=== PATIENT | male | born 1980 | race Caucasian/White ===

== ENCOUNTER 2017-06-09 13:36 | Emergency (ER) | payer MEDICAID ==
[~2017-06-09] VITALS: Wt 69.0 kg
[~2017-06-09 13:36] MED LIST: HYDR-3498 PO; NAPR-260 PO
[2017-06-09 14:46] LABS: BASOPHILS % 0.4 % (0.0-2.0); EOSINOPHILS % 0.8 % (0.0-7.0); HEMATOCRIT 41.8 % (42.0-52.0); HEMOGLOBIN 14.7 g/dl (14.0-18.0); LYMPHOCYTES # 1.9 10^3/ul (0.8-2.9); LYMPHOCYTES % 38.1 % (15.0-51.0); MEAN CORPUSCULAR HEMOGLOBIN 30.3 pg (29.0-33.0); MEAN CORPUSCULAR HGB CONC 35.2 g/dl (32.0-37.0); MEAN CORPUSCULAR VOLUME 86.2 fl (82.0-101.0); MEAN PLATELET VOLUME 9.8 fl (7.4-10.4); MONOCYTE # 0.4 10^3/ul (0.3-0.9); MONOCYTES % 8.3 % (0.0-11.0); NEUTROPHIL # 2.6 10^3/ul (1.6-7.5); NEUTROPHILS % 52.2 % (39.0-77.0); PLATELET COUNT 235 10^3/UL (140-415); RED BLOOD COUNT 4.85 10^6/ul (4.70-6.10); RED CELL DISTRIBUTION WIDTH 12.2 % (11.5-14.5); WHITE BLOOD COUNT 4.9 10^3/ul (4.8-10.8)
[2017-06-09 15:03] LABS: ALBUMIN 4.4 g/dl (3.3-4.9); ALBUMIN/GLOBULIN RATIO 1.37; BILIRUBIN,INDIRECT 0.3 mg/dl (0-1.1); BILIRUBIN,TOTAL 0.3 mg/dl (0.2-1.3); CALCIUM 9.6 mg/dl (8.4-10.2); CREATININE 0.88 mg/dl (0.61-1.24); POTASSIUM 4.1 mmol/L (3.5-5.1); TOTAL PROTEIN 7.6 g/dl (6.1-8.1)
--- NOTE | 2017-06-09 15:08 | RADRPT ---
PROCEDURE: Scrotal ultrasound CLINICAL INDICATION: Scrotal pain TECHNIQUE: Scrotal ultrasound was performed in multiple obliquities. [place] scale and color imaging was performed. Images were reviewed on high resolution PACS monitors. COMPARISON: None available FINDINGS: The testes are normal in size and echogenicity. There is normal flow to the bilateral testes. No t esticular mass or cyst is identified. No hydroceles are seen. There is a 3 mm right epididymal cyst. The epididymides are otherwise normal. There is no evidence for a varicocele. IMPRESSION: 1. 3 mm right epididymal cyst. 2. Otherwise unremarkable scrotal ultrasound. RPTAT: HJBF .Gaurav Flores MD, Date Time Electronically viewed and signed by .Gaurav Flores MD, MD on 06/09/2017 15:07 .B/
[2017-06-09 15:24] LABS: ADD UMIC NO; UR ASCORBIC ACID NEGATIVE (NEGATIVE); UR BILIRUBIN (Dip) NEGATIVE (NEGATIVE); UR BLOOD (Dip) NEGATIVE (NEGATIVE); UR CLARITY SLIGHTLY CLOUDY (CLEAR); UR COLOR YELLOW (YELLOW); UR GLUCOSE (Dip) NEGATIVE (NEGATIVE); UR KETONES (Dip) NEGATIVE (NEGATIVE); UR LEUKOCYTE ESTERASE (Dip) NEGATIVE Leu/ul (NEGATIVE); UR NITRITE (Dip) NEGATIVE (NEGATIVE); UR RBC 0 /HPF (0-5); UR SPECIFIC GRAVITY (Dip) 1.016 (1.003-1.030); UR TOTAL PROTEIN (Dip) NEGATIVE (NEGATIVE); UR UROBILINOGEN (Dip) NEGATIVE (NEGATIVE)
[2017-06-09] MEDS ORDERED: CLOT30CR24 TOP (16:06)
[2017-06-09] MEDS ORDERED: IBUP-1542 PO (16:06)
--- NOTE | 2017-06-09 16:13 | ERD ---
ER Documentation Chief Complaint Date/Time DATE: 06/09/17 TIME: 16:10 Chief Complaint GENITIAL PROBLEM X 4 MONTH HPI This 36-year-old male presents with multiple complaints regarding his genitals. States he has a burning rash on his penis for the last 4 months. He also has pain in his right testicle as well as pain in suprapubic area. His initial complaints of fatigue and is requesting blood work. Denies any penile discharge , dysuria, fevers, vomiting, shortness of breath. ROS All systems reviewed and are negative except as per history of present illness. Medications Home Meds Active Scripts Ibuprofen* (Motrin*) 600 Mg Tab, 600 MG PO Q6, #20 TAB Prov:JENELLE WATERMAN MD 06/09/17 Clotrimazole* (Clotrimazole* AF) 1% - 30 Gm Cream.gm., 1 APPLIC TOP BID for 7 Days, TUB Prov:JENELLE WATERMAN MD 06/09/17 Hydrocodone Bit-Acetaminophen* ([place]*) 5-325 Mg Tab, 1 TAB PO Q6 Y for PAIN, # 14 TAB Prov:PAYAL CERNA DO 10/17/15 Naproxen* (Naprosyn*) 500 Mg Tablet, 500 MG PO BID Y for PAIN AND/OR INFLAMMATION, #30 TAB Prov:PAYAL CERNA DO 10/17/15 Allergies Allergies: Coded Allergies: No Known Allergy (Unverified , 06/09/17) PMhx/Soc Medical and Surgical Hx: pt denies Medical Hx, pt denies Surgical Hx History of Surgery: Yes (appendix) Anesthesia Reaction: No Hx Neurological Disorder: No Hx Respiratory Disorders: No Hx Cardiac Disorders: No Hx Psychiatric Problems: No Hx Miscellaneous Medical Probl: No Hx Alcohol Use: No Hx Substance Use: No Hx Tobacco Use: No Smoking Status: Never smoker Physical Exam Vitals Vital Signs Date Time Temp Pulse Resp B/P Pulse Ox O2 Delivery O2 Flow Rate FiO2 06/09/17 13:37 98.0 69 18 110/71 99 Physical Exam Const: []Alert, [id number] per Head: Atraumatic Eyes: Normal Conjunctiva ENT: Normal External Ears, Nose and Mouth. Neck: Full range of motion..~ No meningismus. Resp: Clear to auscultation bilaterally Cardio: Regular rate and rhythm, no murmurs Abd: Soft, non tender, non distended. Normal bowel sounds General exam-testicles show some very mild tenderness at the superior to the testicle in the epidural space area. There is no significant swelling. Is no penile discharge. There is no appreciable abnormalities on the penile shaft where the patient complains of burning and rash. Possibly minimal tenderness in the right inguinal canal. There is no hernias and no tenderness at McBurney' s point no Frost sign. No penile discharge. Skin: No petechiae or rashes Back: No midline or flank tenderness Ext: No cyanosis, or edema Neur: Awake and alert Psych: Normal Mood and Affect Result Diagram: 06/09/17 1430 06/09/17 1430 Results 24 hrs Laboratory Tests Test 06/09/17 14:30 06/09/17 14:46 White Blood Count 4.910^3/ul Red Blood Count 4.8510^6/ul Hemoglobin 14.7g/dl Hematocrit 41.8% Mean Corpuscular Volume 86.2fl Mean Corpuscular Hemoglobin 30.3pg Mean Corpuscular Hemoglobin Concent 35.2g/dl Red Cell Distribution Width 12.2% Platelet Count 16936^3/UL Mean Platelet Volume 9.8fl Neutrophils % 52.2% Lymphocytes % 38.1% Monocytes % 8.3% Eosinophils % 0.8% Basophils % 0.4% Nucleated Red Blood Cells % 0.0/100WBC Neutrophils # 2.610^3/ul Lymphocytes # 1.910^3/ul Monocytes # 0.410^3/ul Eosinophils # 0.010^3/ul Basophils # 0.010^3/ul Nucleated Red Blood Cells # 0.010^3/ul Sodium Level 141mmol/L Potassium Level 4.1mmol/L Chloride Level 103mmol/L Carbon Dioxide Level 30mmol/L Anion Gap 12 Blood Urea Nitrogen 16mg/dl Creatinine 0.88mg/dl Glucose Level 92mg/dl Calcium Level 9.6mg/dl Total Bilirubin 0.3mg/dl Direct Bilirubin 0.00mg/dl Indirect Bilirubin 0.3mg/dl Aspartate Amino Transf (AST/SGOT) 30IU/L Alanine Aminotransferase (ALT/SGPT) 47IU/L Alkaline Phosphatase 62IU/L Total Protein 7.6g/dl Albumin 4.4g/dl Globulin 3.20g/dl Albumin/Globulin Ratio 1.37 Urine Color YELLOW Urine Clarity SLIGHTLY CLOUDY Urine pH 7.0 Urine Specific [place] 1.016 Urine Ketones NEGATIVEmg/dL Urine Nitrite NEGATIVEmg/dL Urine Bilirubin NEGATIVEmg/dL Urine Urobilinogen NEGATIVEmg/dL Urine Leukocyte Esterase NEGATIVELeu/ul Urine Microscopic RBC 0/HPF Urine Microscopic WBC 1/HPF Urine Hemoglobin NEGATIVEmg/dL Urine Glucose NEGATIVEmg/dL Urine Total Protein NEGATIVEmg/dl Procedures/MDM Scrotal ultrasound shows right epididymal cyst without additional acute findings. Urine shows no acute abnormalities CBC and CMP normal. Urine sent for gonorrhea chlamydia. Patient presents with multiple complaints regarding his genitals. He does have a small epididymal cyst and nonspecific itching of his penile shaft. He was treated with Lotrimin empirically and ibuprofen for pain and primary care follow-up and return precautions. Gonorrhea chlamydia is pending and he will be called for abnormal results. There is no evidence of testicular torsion, signs or symptoms to suggest appendicitis, sepsis, additional emergent causes of presenting complaints. Departure Diagnosis: Primary Impression: Disorder of male genital organs Condition: Stable Patient Instructions: Dermatitis, Non-Specific, Std, Suspected (Culture Only) Additional Instructions: Examines normal hoy. solo un cyste ( benigna) Cheque otro vez con rodriguez doctor primario en el proximo siegel or regresa para mas o nueva simptomas.otir examines para infecciones va a regresa 1 semana. JENELLE WATERMAN MD Jun 09, 2017 16:13
== END 2017-06-09 16:26 | disposition home or self-care (01) ==
LOC: FTE 13:36
DX: N50.811 Right testicular pain (principal)
CPT/HCPCS: 36415; 76870; 80053; 81001; 85025; 87591; Z7502; 81003

== ENCOUNTER 2017-08-08 18:34 | Emergency (ER) | payer MEDICAID ==
[~2017-08-08] VITALS: Ht 165.1 cm; Wt 72.5 kg
[~2017-08-08 18:34] MED LIST changes: +CLOT30CR24 TOP; +IBUP-1542 PO
[2017-08-08 19:06] VITALS: Ht 165.1 cm; Wt 72.5 kg
[2017-08-08] MEDS ORDERED: ACETAMINOPHEN 500 MG TAB PO STA (20:11)
[2017-08-08] MEDS ORDERED: ONDANSETRON (ODT) 4 MG TAB ODT STA (20:11)
[2017-08-08] MEDS ORDERED: MECLIZINE 12.5 MG TAB PO ONE (20:30)
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
[2017-08-08] MEDS ORDERED: ONDA4TAB14 PO (21:28)
[2017-08-08] MEDS ORDERED: ACET500C5 PO (21:28)
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
[2017-08-08 22:03] VITALS: BP 103/69; PULSE 62; RESP 17
== END 2017-08-08 22:04 | disposition home or self-care (01) ==
LOC: FTE 18:34
DX: R51 Headache (principal); M54.2 Cervicalgia
CPT/HCPCS: 70450; 72125; Z7502; Z7610

== ENCOUNTER 2017-11-08 14:10 | Emergency (ER) | END 2017-11-08 17:35 | disposition home or self-care (01) ==

== ENCOUNTER 2019-04-14 09:50 | Emergency (ER) | payer MEDICAID ==
[~2019-04-14] VITALS: Ht 165.1 cm; Wt 79.0 kg
[~2019-04-14 09:50] MED LIST changes: +ACET500C5 PO; +D-ME473S2 PO; -NAPR-260 PO; +NAPR-985 PO; +ONDA4TAB14 PO
[2019-04-14 09:55] VITALS: Ht 165.1 cm; Wt 79.0 kg
[2019-04-14] MEDS ORDERED: KETOROLAC 30 MG INJ IM STA (11:19)
[2019-04-14] MEDS ORDERED: ACETAMINOPHEN 500 MG TAB PO STA (11:20)
--- NOTE | 2019-04-14 11:41 | ERD ---
ER Documentation Chief Complaint Chief Complaint fever cough x 5 days. HPI 38-year-old male presents with complaint of fever and cough over the past 5 days. Patient reports cough productive of whitish sputum, also with frontal type headache, generalized body aches, intermittent nausea, vomiting. States symptoms began abruptly, denies any recent prior illness, sick contacts at home, recent travel. He otherwise denies chest pain, shortness of breath, dyspnea, vomiting, abdominal pain, urinary symptoms, type symptoms. He otherwise without complaint. ROS All systems reviewed and are negative except as per history of present illness. Medications Home Meds Active Scripts Dextromethorphan Hb-Promethazine Hcl* (Promethazine DM* Syrup) 473 Ml Syrup, 5 ML PO Q6 PRN for COUGH for 7 Days, ML Prov:LUIS FERNANDO BENITEZ PA-C 04/14/19 Naproxen* (Naprosyn*) 500 Mg Tablet, 500 MG PO BID PRN for PAIN AND/OR INFLAMMATION, #30 TAB Prov:LUIS FERNANDO BENITEZ PA-C 04/14/19 Acetaminophen* (Tylophen*) 500 Mg Capsule, 1 CAP PO Q6H PRN for PAIN AND OR ELEVATED TEMP, #20 CAP Prov:LUIS FERNANDO BENITEZ PA-C 04/14/19 Ondansetron (Ondansetron Odt) 4 Mg Tab.rapdis, 4 MG PO Q6H PRN for NAUSEA AND/OR VOMITING, #10 TAB Prov:KHURRAM WOOTEN PA-C 08/08/17 Acetaminophen* (Tylophen*) 500 Mg Capsule, 1 CAP PO Q6H PRN for PAIN AND OR ELEVATED TEMP, #20 CAP Prov:KHURRAM WOOTEN PA-C 08/08/17 Ibuprofen* (Motrin*) 600 Mg Tab, 600 MG PO Q6, #20 TAB Prov:JENELLE WATERMAN MD 06/09/17 Clotrimazole* (Clotrimazole* AF) 1% - 30 Gm Cream.gm., 1 APPLIC TOP BID for 7 Days, TUB Prov:JENELLE WATERMAN MD 06/09/17 Hydrocodone Bit-Acetaminophen* ([place]*) 5-325 Mg Tab, 1 TAB PO Q6 PRN for PAIN, #14 TAB Prov:PAYAL CERNA DO 10/17/15 Naproxen* (Naprosyn*) 500 Mg Tablet, 500 MG PO BID PRN for PAIN AND/OR INFLAMMATION, #30 TAB Prov:PAYAL CERNA DO 10/17/15 Allergies Allergies: Coded Allergies: No Known Allergy (Unverified , 08/08/17) PMhx/Soc History of Surgery: Yes (Appendectomy) Anesthesia Reaction: No Hx Neurological Disorder: No Hx Respiratory Disorders: No Hx Cardiac Disorders: No Hx Psychiatric Problems: No Hx Miscellaneous Medical Probl: No Hx Alcohol Use: No Hx Substance Use: No Hx Tobacco Use: No Smoking Status: Never smoker FmHx Family History: No diabetes, No coronary disease, No other Physical Exam Vitals Vital Signs Date Temp Pulse Resp B/P (MAP) Pulse Ox O2 O2 Flow FiO2 Time Delivery Rate 04/14/19 101.3 11:40 04/14/19 101.3 11:34 04/14/19 100.5 104 14 105/60 99 09:55 (75) Physical Exam I have reviewed the triage vital signs. Const: Well nourished, well developed, appears stated age Eyes: PERRL, no conjunctival injection HENT: NCAT, Neck supple without meningismus CV: RRR, Warm, well-perfused extremities RESP: CTAB, Unlabored respiratory effort, no wheezing or rhonchi GI: soft, non-tender, non-distended, no masses MSK: No gross deformities appreciated Skin: Warm, dry. No rashes Neuro: grossly non focal Psych: Appropriate mood and affect. Results 24 hrs Current Medications Medications Dose Sig/Nieves Start Time Status Last (Trade) Ordered Route PRN Stop Time Admin Dose Reason Admin Ketorolac 30 mg ONCE STAT 04/14/19 DC 04/14/19 Tromethamine IM 11:19 11:29 (Toradol) 04/14/19 11:21 500 mg ONCE STAT 04/14/19 DC 04/14/19 Acetaminophen PO 11:20 11:29 (Tylenol 04/14/19 11:21 Tab) Ibuprofen 800 mg ONCE ONCE 04/14/19 DC 04/14/19 (Motrin) PO 12:00 11:40 04/14/19 12:01 Procedures/MDM Pt presents with coughing history suggestive of acute bronchitis. >5days of cough, without evidence of PNA, common cold, or asthma. Unlikely pertussis, s inusitis, or FB irritation/obstruction. ED Course: Chest x-ray without acute finding, patient's fevers improved with Tylenol and ibuprofen administration 2.RR <24 3.Temperature <38 (100.4) 4.Exam findings not consistent with focal consolidation 5.Age <64yr Pt low risk for PNA, plan to DC home w PCP follow up in next 3 days and ED return precautions discussed. Pt educated regarding potential side effects, cost, and possibility for microbial resistance with antibiotics, hence why they are not receiving them. DISPOSITION PLAN: We discussed follow up with the patient's primary care doctor within 24 to 48 hours. Patient counseled regarding my diagnostic impression and care plan. Prior to discharge all questions answered. Pt agrees with treatment plan and under stands strict return precautions. Precautionary instructions provided including instructions to return to the ER if not improving or for any worsening or changing symptoms or concerns. Disclaimer: Inadvertent spelling and grammatical errors are likely due to EHR/dictation software use and do not reflect on the overall quality of patient care. Also, please note that the electronic time recorded on this note does not necessarily reflect the actual time of the patient encounter. Departure Condition: Stable Patient Instructions: Fever Control (Adult) Referrals: [facility] YOU HAVE RECEIVED A MEDICAL SCREENING EXAM AND THE RESULTS INDICATE THAT YOU DO NOT HAVE A CONDITION THAT REQUIRES URGENT TREATMENT IN THE EMERGENCY DEPARTMENT. FURTHER EVALUATION AND TREATMENT OF YOUR CONDITION CAN WAIT UNTIL YOU ARE SEEN IN YOUR DOCTORS OFFICE WITHIN THE NEXT 1-2 DAYS. IT IS YOUR RESPONSIBILITY TO MAKE AN APPOINTMENT FOR FOLOW-UP CARE. IF YOU HAVE A PRIMARY DOCTOR --you should call your primary doctor and schedule an appointment IF YOU DO NOT HAVE A PRIMARY DOCTOR YOU CAN CALL OUR PHYSICIAN REFERRAL HOTLINE AT IF YOU CAN NOT AFFORD TO SEE A PHYSICIAN YOU CAN CHOSE FROM THE FOLLOWING [facility] [address] [facility] [address] [facility] [address] [facility] [address] [facility] [address] [place] [address]. [facility]. [address] Additional Instructions: Call your primary care doctor TOMORROW for an appointment during the next 2-3 days.See the doctor sooner or return here if your condition worsens before your appointment time. LUIS FERNANDO BENITEZ PA-C Apr 14, 2019 11:41
[2019-04-14] MEDS ORDERED: IBUPROFEN 800 MG TAB PO ONE (12:00)
[2019-04-14 13:06] VITALS: BP 109/76; PULSE 81; RESP 18
== END 2019-04-14 13:08 | disposition home or self-care (01) ==
LOC: FTE 09:50
DX: R05 Cough (principal)
CPT/HCPCS: 71046; J1885; Z7610; 96372